=== PATIENT | female | born 1995 | race African-American/Black ===

== ENCOUNTER 2025-11-02 23:38 | Emergency (ER) | payer OTHER ==
[~2025-11-02] VITALS: Ht 162.6 cm; Wt 81.6 kg
[2025-11-02 23:34] VITALS: BP 117/76
[2025-11-03 00:05] LABS: PLATELET COUNT (AUTO) 367 K/uL (179-408); RED BLOOD CELL COUNT(AUTO) 4.02 MIL/uL (3.63-4.92); RED CELL DISTRIBUTION WIDTH 15.2 % (12.3-17.7); WHITE BLOOD COUNT (AUTO) 7.2 K/uL (3.8-11.8)
[2025-11-03 00:24] LABS: CREATININE 0.8 mg/dL (0.6-1.3); SODIUM SERUM 143 mmol/L (136-145); UREA NITROGEN, BLOOD 9 mg/dL (7-18)
[2025-11-03 00:29] LABS: ASPARTATE AMINOTRANSFERASE 15 U/L (15-37); TOTAL PROTEIN, SERUM 8.1 g/dL (6.4-8.2)
[2025-11-03] MEDS ORDERED: IBUPROFEN 800 MG TABLET ONE (01:02)
[2025-11-03] MEDS: IBUPROFEN 800 MG TABLET PO ONE (01:06)
[2025-11-03 01:32] VITALS: BP 117/76; TEMP 98.6; O2SAT 97
== END 2025-11-03 01:00 | disposition home or self-care (01) ==
LOC: ER 23:38
DX: R07.89 Other chest pain (principal); F17.200 Nicotine dependence, unspecified, uncomplicated; Z88.7 Allergy status to serum and vaccine
CPT/HCPCS: 36415; 71045; 84484; 85025; A4606; A4663